=== PATIENT | male | born 1975 | race Caucasian/White ===

== ENCOUNTER → 2019-03-24 11:06 | Outpatient (CLI) | payer OTHER, SELFPAY ==
[2014-06-01 07:20] VITALS: BMI 24.5
--- NOTE | 2019-03-24 11:28 | EKG12_ITS ---
Test Reason : PRE OP Blood Pressure : / mmHG Vent. Rate : 071 BPM Atrial Rate : 071 BPM P-R Int : 170 ms QRS Dur : 070 ms QT Int : 370 ms P-R-T Axes : 071 054 064 degrees QTc Int : 402 ms Normal sinus rhythm with sinus arrhythmia Normal ECG Confirmed by BRITT JASON, TRAVIS ([id number]), editor in chief newspaper TEREZA IGNACIO ([id number] on 03/25/2019 11:50:26 AM Referred By: Milton Encarnacion Confirmed By:ОЛЕГ DE LA TORRE MD
[2019-03-24 11:57] LABS: Hemoglobin 15.4 g/dL (13.0-16.5); Mean Corp Hgb Conc 34.2 g/dL (32-36); Mean Corpuscular Hgb 30.9 pg (27.0-32.0); Mean Corpuscular Volume 90.4 fL (80-94); Mean Platelet Vol. 10.8 fl (6.2-12.0); Platelet Count 231 K/mm3 (150-450); RBC Distribution Width CV 12.9 % (11.6-14.6); RBC Distribution Width SD 42.4 fl (35.1-43.9); Red Blood Count 4.98 M/mm3 (4.6-6.2); White Blood Count 8.5 K/mm3 (4.4-11.0)
[2019-03-24 12:02] LABS: Anion Gap 6 (5-15); BUN 8 mg/dL (7-18); BUN/Creat Ratio 8.1 RATIO (10-20); Calcium,Total 8.8 mg/dL (8.5-10.1); Chloride 108 mmol/L (98-107); Creatinine, Serum 0.99 mg/dL (0.70-1.30); EST Glomerular Filtration Rate 87 mL/min (>60); Est Glom Filt Rate - Afr Amer 105 mL/min (>60); Glucose 92 mg/dL (74-106); Sodium Level 140 mmol/L (136-145)
== END ==
PROVIDERS: Family Provider Internal Medicine; PCP Internal Medicine; Referring Provider Physician Assistant; Visit Provider Physician Assistant
DX: Z01.818 Encounter for other preprocedural examination (principal); Z01.810 Encounter for preprocedural cardiovascular examination
CPT/HCPCS: 36415; 80048; 85027; 93005

== ENCOUNTER 2020-05-08 08:46 | Emergency (ER) | payer MEDICAID, SELFPAY ==
[2020-05-08 08:47] VITALS: BP 127/84; PULSE 72; RESP 15; TEMP 36.2; O2SAT 99; BMI 25.4
--- NOTE | 2020-05-08 09:04 | CT_ITS ---
STUDY: CT ABDOMEN AND PELVIS WITHOUT CONTRAST REASON FOR EXAM: Male, 44 years old. RIGHT FLANK PAIN, CHOLECYSTECTOMY RADIATION DOSAGE (If Supplied By Facility): CTDIvol = ( 10.28 ) mGy, DLP = ( 511.06 ) mGycm TECHNIQUE: Transaxial images were obtained from the dome of the diaphragm to the symphysis pubis without oral contrast, and without intravenous contrast. Sagittal and coronal images were reconstructed. Individualized dose optimization techniques were used for this CT. COMPARISON: Comparison is made with prior study dated 06/01/2014. FINDINGS: Minimal increased markings at the lung bases suggestive of atelectasis. The visualized portions of the heart are within normal limits. Normal liver. The patient is status post cholecystectomy. Normal spleen. Normal pancreas. The previously seen nodular density of decreased attenuation in the right adrenal gland has increased in size. It presently measures 2.1 cm. A similar appearing hypodense nodule is seen in the left adrenal gland at this time. It measures 1.1 cm. These most likely represent adenomas. Normal right kidney. There are 2 adjacent nonobstructive left intrarenal calculi in the upper pole of the left kidney. The larger measures 5.3 mm. Tiny calculus is seen in the lower pole calyx of the left kidney. There is a small hiatal hernia. Normal small intestine. Normal colon. The appendix is visualized and appears normal. Normal abdominal aorta. Normal inferior vena cava. There is borderline retroperitoneal lymphadenopathy with enlarged nodes no greater than 10mm in the short axis diameter. Normal urinary bladder. There are prostatic calcifications. There is a small umbilical hernia containing fat. There are mild degenerative changes of the visualized lumbar spine. CT/Abdomen/Pelvis without Cont IMPRESSION: Findings suggestive of a benign appearing bilateral adrenal adenomas. Nonobstructive right intrarenal calculi. Status post cholecystectomy. Electronically Signed: Louie De La Cruz, at 10:00 EDT , Service support ,
--- NOTE | 2020-05-08 09:05 | ED.DCSUM_ITS ---
History of Present Illness Chief Complaint: Abd Pain Informant: Patient Narrative: Patient presents the emergency department for the evaluation of right upper quadrant abdominal and right lower chest wall pain. Patient states that for the past 4 days he has had some nasal congestion and a slight cough and a sore throat. He denies any fever. He denies any bowel or bladder symptoms. He states that last evening the right lower chest right upper abdomen began to hurt. It is worse with movement and touch. He notes the ribs are sore. He has had prior cholecystectomy. He notes a prior history of kidney stones. Past Medical History - Allergies and Home Meds Allergies/Adverse Reactions: Allergies acetaminophen [From Vicodin] Allergy (Verified 05/08/20 08:50) Rash amoxicillin [Amoxicillin] Allergy (Verified 05/08/20 08:50) Rash hydrocodone bitartrate [From Vicodin] Allergy (Verified 05/08/20 08:50) Rash povidone-iodine [From Betadine] Allergy (Verified 05/08/20 08:50) Rash soap [From Betadine] Allergy (Verified 05/08/20 08:50) Rash Primary Care Physician: Marcela Tomas MD [STAFF PHYSICIAN] - 1 Week Prior records reviewed: Yes Past Medical History: - - KIDNEY STONES Surgical History: cholecystectomy Smoking Status: Current every day smoker Drugs: None Review of Systems General: Reports: Malaise. Denies: Chills, Fever, Sweats Eyes: Denies: Visual changes - bilaterally, Diplopia ENT: Reports: Rhinorrhea, Sore throat Cardiovascular: Reports: Chest pain. Denies: Palpitations Respiratory: Reports: Cough. Denies: Dyspnea, Dyspnea on exertion Gastrointestinal: Reports: Abdominal pain. Denies: Nausea, Vomiting, Diarrhea, Melena, Hematochezia Genitourinary: Denies: Dysuria, Hematuria, Frequency Musculoskeletal: Denies: Back pain, Extremity Pain Skin: Denies: Rash, Wounds Neurological: Denies: Headache, Weakness, Numbness Physical Exam Vital Signs/Narrative: Vital Signs Temp Pulse Resp BP Pulse Ox 05/08/20 08:47 97.1 F L 72 15 127/84 H 99 Inital Vital Signs reviewed: Yes General: Well nourished, Well developed, No Acute Distress Head: Normocephalic, Atraumatic Eyes: Perrl, EOMI ENT: Moist mucous membranes, Nasal congestion Neck: Supple, Nontender Cardiovascular: Regular rate, Regular rhythm, No murmurs Respiratory: No distress, CTA bilaterally, Chest nontender, Chest tenderness - Lower right anterior and mid axillary rib tenderness Abdomen: Soft, Nondistended, Normal bowel sounds, Tender - Right upper quadrant. Negative for: Guarding, Rebound tenderness Back: Nontender, Normal Inspection Extremities: Nontender, No edema Skin: Normal color, No rash Neurological: Alert, Oriented x3, Cranial nerves II-XII grossly intact, Normal Strength, Normal Sensation Psychological: Normal affect, Normal Mood Diagnostic/Tx/Re-eval Clinical Impression(s) from Imaging Studies Abdomen/Pelvis CT 05/08/20 09:04 IMPRESSION: Findings suggestive of a benign appearing bilateral adrenal adenomas. Nonobstructive right intrarenal calculi. Status post cholecystectomy. Electronically Signed: Louie De La Cruz, at 10:00 EDT , Service support , Chest X-Ray 05/08/20 09:34 IMPRESSION: No acute abnormality is seen. Electronically Signed: Louie De La Cruz, at 10:12 EDT , Service support , Laboratory Last Values WBC 9.5 K/mm3 (4.4-11.0) 05/08/20 09:10 RBC 5.17 M/mm3 (4.6-6.2) 05/08/20 09:10 Hgb 16.0 g/dL (13.0-16.5) 05/08/20 09:10 Hct 46.0 % (40-54) 05/08/20 09:10 MCV 89.0 fL (80-94) 05/08/20 09:10 MCH 30.9 pg (27.0-32.0) 05/08/20 09:10 MCHC 34.8 g/dL (32-36) 05/08/20 09:10 RDW Std Deviation 43.4 fl (35.1-43.9) 05/08/20 09:10 RDW Coeff of Mireya 13.3 % (11.6-14.6) 05/08/20 09:10 Plt Count 230 K/mm3 (150-450) 05/08/20 09:10 MPV 10.7 fl (6.2-12.0) 05/08/20 09:10 Neut % (Auto) Not Reportable 05/08/20 09:10 Absolute Neuts (auto) 6.6 X10^3/uL (2.0-7.7) 05/08/20 09:10 Absolute Lymphs (auto) 1.89 X10^3/uL (0.83-4.51) 05/08/20 09:10 Total Counted 100 (MANUAL DIFF) 05/08/20 09:10 Neutrophils % (Manual) 67 % (47-70) 05/08/20 09:10 Band Neutrophils % 3 % (0-5) 05/08/20 09:10 Lymphocytes % (Manual) 20 % (19-41) 05/08/20 09:10 Monocytes % (Manual) 6 % (0-10) 05/08/20 09:10 Eosinophils % (Manual) 1 % (0-5) 05/08/20 09:10 Basophils % (Manual) 1 % (0-1) 05/08/20 09:10 Blast Cells % 1 % (0-0) H* 05/08/20 09:10 Other Cells % 1 % 05/08/20 09:10 Diff Path Review December05/08/20 09:10 Platelet Estimate ADEQUATE (ADEQ) 05/08/20 09:10 RBC Morphology NORM C+C NORMAL (NORM C&C) 05/08/20 09:10 Sodium 137 mmol/L (136-145) 05/08/20 09:10 Potassium 4.0 mmol/L (3.5-5.1) 05/08/20 09:10 Chloride 109 mmol/L (98-107) H 05/08/20 09:10 Carbon Dioxide 26.0 mmol/L (21.0-32.0) 05/08/20 09:10 Anion Gap 2 (5-15) L 05/08/20 09:10 BUN 12 mg/dL (7-18) 05/08/20 09:10 Creatinine 0.99 mg/dL (0.70-1.30) 05/08/20 09:10 Estim Creat Clear Calc 106.49 ml/min 05/08/20 09:10 Est GFR (MDRD) Af Amer 105 mL/min (>60) 05/08/20 09:10 Est GFR (MDRD) Non-Af 87 mL/min (>60) 05/08/20 09:10 BUN/Creatinine Ratio 12.2 RATIO (10-20) 05/08/20 09:10 Glucose 104 mg/dL (74-106) 05/08/20 09:10 Calcium 8.8 mg/dL (8.5-10.1) 05/08/20 09:10 Total Bilirubin 0.30 mg/dL (0.20-1.00) 05/08/20 09:10 AST 17 U/L (15-37) 05/08/20 09:10 ALT 21 U/L (16-61) 05/08/20 09:10 Alkaline Phosphatase 85 U/L (45-117) 05/08/20 09:10 Total Protein 7.4 g/dL (6.4-8.2) 05/08/20 09:10 Albumin 3.8 g/dL (3.2-5.0) 05/08/20 09:10 Globulin 3.6 g/dL (2.2-4.2) 05/08/20 09:10 Albumin/Globulin Ratio 1.1 RATIO (0.9-2.4) 05/08/20 09:10 Lipase 169 U/L (73-393) 05/08/20 09:10 Urine Color Yellow (Yellow) 05/08/20 09:25 Urine Clarity Sl. Cloudy (Clear) 05/08/20 09:25 Urine pH 6.5 (5.0 - 8.0) 05/08/20 09:25 Ur Specific [place] 1.005 (1.002-1.030) 05/08/20 09:25 Urine Protein Negative mg/dl (Negative) 05/08/20 09:25 Urine Glucose (UA) Normal mg/dl (Normal) 05/08/20 09:25 Urine Ketones Negative mg/dl (Negative) 05/08/20 09:25 Urine Occult Blood Negative /ul (Negative) 05/08/20 09:25 Urine Nitrite Negative (Negative) 05/08/20 09:25 Urine Bilirubin Negative mg/dL (Negative) 05/08/20 09:25 Urine Urobilinogen Normal mg/dl (Normal) 05/08/20 09:25 Ur Leukocyte Esterase Negative /ul (Negative) 05/08/20 09:25 Urine RBC 0 SEEN /hpf (0-5) 05/08/20 09:25 Urine WBC 0 SEEN /hpf (0-5) 05/08/20 09:25 Ur Squamous Epith Cells 0-5 SEEN /hpf (0-5) 05/08/20 09:25 Urine Bacteria 0 SEEN /hpf (None Seen) 05/08/20 09:25 Urine Mucus 0 SEEN /hpf (<or=2+) 05/08/20 09:25 - Medical Decision Making Basic blood work is negative though one blast was noted on his automatic differential. Patient was advised he should follow-up with his doctor. CT the pelvis negative chest x-ray negative. At this point his ribs are very tender and reproduces his pain. He has evidence of a URI. I suspect that this is rib strain. I doubt pulmonary embolism as his pain is extremely reproducible. He is not tachycardic or hypoxic. He has no shortness of breath. Because of rhinorrhea and sore throat we will swab him for COVID. Would recommend anti- inflammatories rest. Return if worsening or concerns ED Disposition - Plan for ED Patient: Disposition: Home or Assisted Living Diagnosis: URI (upper respiratory infection), Chest wall pain Instructions: ED Chest Pain NonCardiac, ED URI Viral Prescriptions: Naproxen [Naprosyn] 500 mg PO BID #14 tab Prescription Printed Referrals: Marcela Tomas MD [STAFF PHYSICIAN] - 1 Week Additional Instructions: Please follow-up with your primary care physician regarding this visit.
[2020-05-08 09:17] LABS: Mean Corp Hgb Conc 34.8 g/dL (32-36); Mean Corpuscular Hgb 30.9 pg (27.0-32.0); Mean Platelet Vol. 10.7 fl (6.2-12.0); POSITIVE MORPHOLOGY YES; Platelet Count 230 K/mm3 (150-450); RBC Distribution Width CV 13.3 % (11.6-14.6); RBC Distribution Width SD 43.4 fl (35.1-43.9); Red Blood Count 5.17 M/mm3 (4.6-6.2); White Blood Count 9.5 K/mm3 (4.4-11.0)
[2020-05-08] MEDS: Ketorolac 30 MG/ML Syringe IV (09:28)
--- NOTE | 2020-05-08 09:34 | RAD_ITS ---
STUDY: X-RAY CHEST REASON FOR EXAM: Male, 44 years old. RUQ PAIN SINCE LAST NIGHT TECHNIQUE: PA and lateral views of the chest. COMPARISON: Comparison is made with prior study dated 06/29/2013. FINDINGS: Hyperinflation. Scattered calcified granulomas. There is no demonstrated pleural abnormality. Normal size heart. Normal mediastinum and vipul. Normal visualized pulmonary arteries. Normal visualized aortic arch and descending thoracic aorta. Normal visualized thoracic spine. Normal visualized ribs, clavicles, and shoulders. There is no demonstrated abnormality of the visualized soft tissue structures of the upper abdomen. RAD/Chest PA and Lateral IMPRESSION: No acute abnormality is seen. Electronically Signed: Louie De La Cruz, at 10:12 EDT , Service support ,
[2020-05-08 09:35] LABS: Bacteria 0 SEEN /hpf (None Seen); Mucous, Urine 0 SEEN /hpf (<or=2+); Red Blood Cells-Urine 0 SEEN /hpf (0-5); White Blood Cells 0 SEEN /hpf (0-5)
[2020-05-08 09:36] LABS: ALB/GLOB Ratio 1.1 RATIO (0.9-2.4); AST(SGOT) 17 U/L (15-37); Alanine Aminotransfer ALT/SGPT 21 U/L (16-61); Albumin, Serum 3.8 g/dL (3.2-5.0); Alkaline Phosphatase 85 U/L (45-117); Anion Gap 2 (5-15); BUN 12 mg/dL (7-18); BUN/Creat Ratio 12.2 RATIO (10-20); Calcium,Total 8.8 mg/dL (8.5-10.1); Chloride 109 mmol/L (98-107); Creatinine, Serum 0.99 mg/dL (0.70-1.30); EST Glomerular Filtration Rate 87 mL/min (>60); Est Glom Filt Rate - Afr Amer 105 mL/min (>60); Estimated Creatinine Clearance 106.49 ml/min; Globulin 3.6 g/dL (2.2-4.2); Glucose 104 mg/dL (74-106); Lipase 169 U/L (73-393); Protein, Total 7.4 g/dL (6.4-8.2); Sodium Level 137 mmol/L (136-145)
[2020-05-08 09:37] LABS: Color, Urine Yellow (Yellow); Glucose, Dipstick Normal (Normal); Ketone-Dipstick Negative (Negative); Leukocyte Esterase-Dipstick Negative /ul (Negative); Nitrite-Dipstick Negative (Negative); Occult Blood-Urine Negative /ul (Negative); Protein-Dipstick Negative (Negative); Specific Gravity, Urine 1.005 (1.002-1.030); Urine Bilirubin Dipstick Negative (Negative); Urine Clarity Sl. Cloudy (Clear); Urine Urobilinogen Normal (Normal); Urine pH 6.5 (5.0 - 8.0)
[2020-05-08 09:42] LABS: Squamous Epithelial Cells - UA 0-5 SEEN /hpf (0-5)
[2020-05-08 09:47] LABS: Differential Indicated MANUAL DIFF
[2020-05-08 09:50] LABS: Basophil 1 % (0-1); Blast 1 % (0-0); Eosinophil 1 % (0-5); Lymphocyte 20 % (19-41); Monocyte 6 % (0-10); Neutrophil-Band 3 % (0-5); Neutrophil-Segmented 67 % (47-70); Total Cells Counted 100 (MANUAL DIFF)
[2020-05-08 09:52] LABS: Absolute Lymphocyte Count 1.89 X10^3/uL (0.83-4.51); Absolute Neutrophil Count 6.6 X10^3/uL (2.0-7.7); Other WBC Type 1 %
[2020-05-08 09:53] LABS: Platelet Estimate ADEQUATE (ADEQ)
[2020-05-08 09:54] LABS: Red Cell Morphology NORM C+C NORMAL (NORM C&C)
[2020-05-09 12:12] LABS: Pathologist Review Reviewed
== END 2020-05-08 10:39 | disposition home or self-care (01) ==
PROVIDERS: Emergency Provider Emergency Medicine; PCP Family Medicine
DX: J06.9 Acute upper respiratory infection, unspecified (principal); R07.89 Other chest pain; F17.200 Nicotine dependence, unspecified, uncomplicated; Z87.442 Personal history of urinary calculi
CPT/HCPCS: 71046; 74176; 80053; 81001; 83690; 85025; 87635; 96374; 99283; A4216; U0003

== ENCOUNTER 2020-07-17 18:47 | Emergency (ER) | payer MEDICAID, SELFPAY ==
[2020-07-17 18:48] VITALS: BP 136/86; PULSE 86; RESP 20; TEMP 35.7; O2SAT 98; BMI 27.6
--- NOTE | 2020-07-17 20:06 | EKG12_ITS ---
Test Reason : CP Blood Pressure : / mmHG Vent. Rate : 072 BPM Atrial Rate : 072 BPM P-R Int : 204 ms QRS Dur : 074 ms QT Int : 390 ms P-R-T Axes : 075 030 042 degrees QTc Int : 427 ms Normal sinus rhythm Low voltage QRS Nonspecific ST abnormality Abnormal ECG Confirmed by BRITT JASON, TRAVIS ([id number]), editor sound DORIS MONDRAGON ([id number]) on 07/20/2020 8:51:07 A M Referred By: JIGAR Confirmed By:ОЛЕГ DE LA TORRE MD
--- NOTE | 2020-07-17 20:08 | ED.DCSUM_ITS ---
History of Present Illness Chief Complaint: General Illness Informant: Patient Narrative: 45-year-old male presenting with chest pain. This began last evening about 6 to 6:30 PM when he was having sexual intercourse. He states he had acute onset pain and became diaphoretic and pale. This lasted about an hour at this severity and he has had mild chest pain all day. He states he then went and laid down on the couch and states he did not wake up until this evening. He feels fatigued. He has not had a fever or cough but does state he has shortness of breath on ambulation and becomes lightheaded. He denies any cardiac history. Patient states he is a smoker Past Medical History - Allergies and Home Meds Allergies/Adverse Reactions: Allergies acetaminophen [From Vicodin] Allergy (Verified 05/08/20 08:50) Rash amoxicillin [Amoxicillin] Allergy (Verified 05/08/20 08:50) Rash hydrocodone bitartrate [From Vicodin] Allergy (Verified 05/08/20 08:50) Rash povidone-iodine [From Betadine] Allergy (Verified 05/08/20 08:50) Rash soap [From Betadine] Allergy (Verified 05/08/20 08:50) Rash Primary Care Physician: Tony Holguin MD [Primary Care Provider] - Prior records reviewed: Yes Past Medical History: - - History of diverticulitis, IBS Surgical History: cholecystectomy Lives: Spouse/ Significant Other Smoking Status: Current every day smoker Alcohol: None Drugs: None Review of Systems General: Reports: Malaise, Sweats. Denies: Chills, Fever Eyes: Denies: Visual changes - bilaterally, Diplopia ENT: Denies: Rhinorrhea, Sore throat Cardiovascular: Reports: Chest pain, Palpitations Respiratory: Reports: Dyspnea, Dyspnea on exertion Gastrointestinal: Reports: Abdominal pain, Nausea Genitourinary: Reports: Dysuria, Hematuria Musculoskeletal: Reports: Myalgias, Arthralgias Skin: Denies: Rash, Abscess Neurological: Reports: Headache. Denies: Parasthesia, Numbness Psych: Reports: Depression. Denies: Anxiety Endocrine: Denies: Polyuria, Polydipsia Physical Exam Vital Signs/Narrative: Vital Signs Temp Pulse Resp BP Pulse Ox 07/17/20 18:48 96.2 F L 86 20 H 136/86 H 98 Diagnostic/Tx/Re-eval Clinical Impression(s) from Imaging Studies Chest X-Ray 07/17/20 20:35 IMPRESSION: No acute cardiopulmonary process. Electronically Signed: Chanel Cerna MD at 21:11 EST Tel , Service support , Laboratory Data 07/17/20 07/17/20 07/17/20 20:30 20:30 20:30 WBC 9.4 RBC 5.01 Hgb 15.1 Hct 44.9 MCV 89.6 MCH 30.1 MCHC 33.6 RDW Std Deviation 42.9 RDW Coeff of Mireya 13.1 Plt Count 229 MPV 10.9 Immature Gran % (Auto) 0.300 Neut % (Auto) 57.2 Lymph % (Auto) 32.2 [place] % (Auto) 8.3 Eos % (Auto) 1.4 Baso % (Auto) 0.6 Absolute Neuts (auto) 5.4 Absolute Lymphs (auto) 3.02 Nucleated RBC % 0 D-Dimer Quant (PE/DVT) 0.29 Sodium 143 Potassium 4.0 Chloride 112 H Carbon Dioxide 25.0 Anion Gap 6 BUN 13 Creatinine 0.89 Estim Creat Clear Calc 117.21 Est GFR (MDRD) Af Amer 118 Est GFR (MDRD) Non-Af 97 BUN/Creatinine Ratio 14.5 Glucose 91 Calcium 8.3 L Troponin I < 0.015 - Rhythm Strip Rhythm Strip: Sinus Rhythm Rate: 72 - EKG Initial EKG Interpretation: Sinus Rhythm, No Acute Injury Pattern - Medical Decision Making 45-year-old male presenting with chest pain last evening and extending into today. He said that he just feels generally unwell and has been sleeping all day. He is not had a fever or cough. EKG performed on arrival shows sinus rhythm without ischemic changes as interpreted by myself. Chest x-ray is negative for acute process as interpreted by the radiologist and myself. Troponin is negative after multiple hours of discomfort so I do not believe he needs a delta troponin. D-dimer is negative. Rest of patient's lab are unremarkable. I counseled the patient that I could test him for Covid and have him quarantine given his feeling of unwellness. He was amenable to this plan. He will be tested and discharged home. Impression: 1. Chest pain ED Disposition - Plan for ED Patient: Disposition: Home or Assisted Living Instructions: Coronavirus Disease 2019 (COVID-19): Caring for Yourself or Others, ED Chest Pain, Uncertain Cause Referrals: Tony Holguin MD [Primary Care Provider] -
[2020-07-17 20:26] VITALS: BP 136/86; PULSE 81; PULSE 85; RESP 16; RESP 18; TEMP 35.7; O2SAT 96; O2SAT 98
[2020-07-17] MEDS: 0.9% Normal Saline 1,000 ML 1000 ML IV (20:31)
[2020-07-17] MEDS: Aspirin 81 MG TAB.CHEW 324 MG PO (20:31)
--- NOTE | 2020-07-17 20:35 | RAD_ITS ---
STUDY: X-RAY CHEST REASON FOR EXAM: Male, 45 years old. sob,cough,fatigue TECHNIQUE: Single frontal view of the chest. COMPARISON: 05/08/2020 FINDINGS: There is no new focal consolidation. Normal size heart. Normal mediastinum and vipul. Normal visualized pulmonary arteries. Normal visualized aortic arch and descending thoracic aorta. Normal visualized thoracic spine. Normal visualized ribs, clavicles, and shoulders. There is no demonstrated abnormality of the visualized soft tissue structures of the upper abdomen. RAD/Chest 1 View (Portable) IMPRESSION: No acute cardiopulmonary process. Electronically Signed: Chanel Cerna MD at 21:11 EST Tel , Service support ,
[2020-07-17 20:46] LABS: Absolute Lymphocyte Count 3.02 X10^3/uL (0.83-4.51); Absolute Neutrophil Count 5.4 X10^3/uL (2.0-7.7); Basophil# 0.06 X10^3/uL; Basophil% 0.6 % (0-1); Eosinophil# 0.13 X10^3/uL; Eosinophils% 1.4 % (0-5); Hematocrit 44.9 % (40-54); Hemoglobin 15.1 g/dL (13.0-16.5); Lymphocyte # 3.02 X10^3/ul (4.0); Lymphocyte % 32.2 % (19-41); Mean Corp Hgb Conc 33.6 g/dL (32-36); Mean Corpuscular Hgb 30.1 pg (27.0-32.0); Mean Corpuscular Volume 89.6 fL (80-94); Mean Platelet Vol. 10.9 fl (6.2-12.0); Monocyte# 0.78 X10^3/uL; Monocyte% 8.3 % (0-10); NRBC Flagged by Analyzer 0 % (0-5); Neutrophil # 5.36 X10^3/uL (2.7-7.7); Neutrophil % 57.2 % (47-70); Platelet Count 229 K/mm3 (150-450); RBC Distribution Width CV 13.1 % (11.6-14.6); RBC Distribution Width SD 42.9 fl (35.1-43.9); Red Blood Count 5.01 M/mm3 (4.6-6.2); White Blood Count 9.4 K/mm3 (4.4-11.0)
[2020-07-17 21:06] LABS: Anion Gap 6 (5-15); BUN 13 mg/dL (7-18); BUN/Creat Ratio 14.5 RATIO (10-20); Calcium,Total 8.3 mg/dL (8.5-10.1); Chloride 112 mmol/L (98-107); Creatinine, Serum 0.89 mg/dL (0.70-1.30); EST Glomerular Filtration Rate 97 mL/min (>60); Est Glom Filt Rate - Afr Amer 118 mL/min (>60); Estimated Creatinine Clearance 117.21 ml/min; Glucose 91 mg/dL (74-106); Sodium Level 143 mmol/L (136-145)
[2020-07-17 21:13] LABS: D-Dimer Quantitative (DVT/PE) 0.29 FEU/ug/m (0.27-0.49)
[2020-07-17 23:02] VITALS: BP 121/92; PULSE 75; RESP 16; O2SAT 96
== END 2020-07-17 23:03 | disposition home or self-care (01) ==
PROVIDERS: Emergency Provider Student in an Organized Health Care Education/Training Program; PCP Family Medicine
DX: R07.9 Chest pain, unspecified (principal); F17.200 Nicotine dependence, unspecified, uncomplicated; Z88.5 Allergy status to narcotic agent
CPT/HCPCS: 71045; 80048; 84484; 85025; 85379; 93005; 96360; 96361; 99285; J7030

== ENCOUNTER 2020-12-19 23:59 | Emergency (ER) | payer MEDICAID, SELFPAY ==
[2020-12-20] VITALS: BP 144/86; PULSE 90; RESP 18; TEMP 36.8; O2SAT 100; BMI 25.9
--- NOTE | 2020-12-20 00:31 | RAD_ITS ---
STUDY: X-RAY - RIGHT HAND REASON FOR EXAM: Male, 45 years old. trauma TECHNIQUE: 3 view(s) of the hand. COMPARISON: None. FINDINGS: Normal radiocarpal articulation. Normal distal radioulnar joint. Normal visualized carpal bones. Normal carpal articulations Normal carpometacarpal articulation of the thumb. Normal second through fifth carpometacarpal joints. Normal metacarpi. Normal metacarpophalangeal joint of the thumb. Normal interphalangeal joint of the thumb. Normal proximal and distal phalanges of the thumb. Normal metacarpophalangeal joints of the second through fifth fingers. Normal proximal and distal interphalangeal joints of the second through fifth fingers. Normal phalanges of the second through fifth fingers. The soft tissue structures are unremarkable. RAD/Hand Min 3 Views IMPRESSION: Normal x-ray examination of the hand. Electronically Signed: Bryan Keller DO at 1:27 EDT Tel , Service support ,
--- NOTE | 2020-12-20 00:31 | RAD_ITS ---
STUDY: X-RAY - RIGHT WRIST REASON FOR EXAM: Male, 45 years old. trauma TECHNIQUE: 3 view(s) of the wrist were obtained. COMPARISON: None. FINDINGS: Normal visualized distal radius and ulna. Normal radiocarpal articulation. Normal distal radioulnar articulation. Normal carpal bones. Normal carpal articulations. Normal carpometacarpal articulation of the thumb. Normal second through fifth carpometacarpal articulations. Normal visualized metacarpal bones. The soft tissue structures are unremarkable. RAD/Wrist min 3 Views IMPRESSION: Normal x-ray examination of the wrist. Electronically Signed: Bryan Keller DO at 1:27 EDT Tel , Service support ,
[2020-12-20] MEDS: Ketorolac 30 MG/ML Syringe IM (00:38)
--- NOTE | 2020-12-20 00:41 | EX.ED.UPPERE ---
HPI History of Present Illness Chief Complaint: Upper Extremity Injury Informant: patient Occured/Mechanism Mechanism/Context: Yes same level fall Comment: Dog pulled him and he landed on his right hand and wrist Onset/Context/Timing Onset: Today Context: Sudden Onset Timing: Continuous Quality of Pain: Aching Location: Right hand and wrist Current Severity: Severe Maximum Severity: Severe Worsened by: Movement and use Associated Symptoms Associated Symptoms: Negative for Parasthesia, Weakness and Loss of Funtion Narrative Prior similar symptoms: No PFSH PFSH Medical History Patient denies medical problems Home Medications naproxen 500 mg PO BID PRN #20 tab 12/20/20 [Rx Last Taken Unknown] Allergy/AdvReac Type Severity Reaction Status Date / Time acetaminophen [From Vicodin] Allergy Rash Verified 12/20/20 00:02 amoxicillin [Amoxicillin] Allergy Rash Verified 12/20/20 00:02 hydrocodone bitartrate Allergy Rash Verified 12/20/20 00:02 [From Vicodin] povidone-iodine Allergy Rash Verified 12/20/20 00:02 [From Betadine] soap [From Betadine] Allergy Rash Verified 12/20/20 00:02 Social History Smoking Status: Current every day smoker ROS ROS ED Constitutional Constitutional ED: Denies chills or frequent falls Eyes Eyes: Denies change in vision ENT ENT ED: Denies ear pain Cardiovascular Cardiovascular: Denies chest pain Respiratory/Chest Respiratory/Chest: Denies dyspnea Gastrointestinal Gastrointestinal: Denies abdominal pain Genitourinary Genitourinary ED: Denies dysuria Musculoskeletal Musculoskeletal: Reports myalgias; Denies back pain or neck pain Integumentary Denies abscess, Abrasions or rash Neurologic Neurologic: Denies headache(s), paresthesias or weakness Psychiatric Psychiatric: Denies depression Endocrine Endocrinology: Denies polyuria Hematologic/Lymphatic Hematologic/Lymphatic: Denies easy bleeding or easy bruising Allergic/Immunologic Allergic/Immunologic ED: Denies urticaria EXAM Physical Exam Narrative Exam Narrative: Vital signs reviewed. Patient alert and oriented. Appears uncomfortable but not toxic or in distress. Head and neck atraumatic Upper extremity exam shows normal inspection. He is tender to palpation over his dorsal hand, more so on the ulnar side. He also has diffuse tenderness to his right wrist. No elbow tenderness. Range of motion is intact but limited secondary to pain. Pulses strong and equal. Capillary refill normal. Sensation intact. Const Vital Signs: 12/20/20 00:00 Temperature 98.3 F Temperature Source Temporal Pulse Rate 90 Respiratory Rate 18 Blood Pressure 144/86 H Blood Pressure Mean 105 Pulse Ox 100 Oxygen Delivery Method Room Air MDM MDM MDM Narrative Medical decision making narrative: Patient was treated with pain medication. Will check x-rays. X-rays reviewed by myself and the radiologist were negative. Patient was placed in a preformed, Velcro splint. Anti-inflammatories. Rest, ice, elevate. Follow-up as an outpatient as needed. Discharge Plan Triage Chief Complaint: Upper Extremity Injury ED Provider: Freeman Valdivia Dx/Rx/DC Orders Clinical Impression: Right wrist sprain Instructions: ED Wrist Sprain Prescriptions: New naproxen 500 mg tablet 500 mg PO BID PRN Qty: 20 RF: 0 Primary Care Provider: Tony Holguin Referrals: Tony Holguin MD [Primary Care Provider] - As Needed Disposition Disposition: Home, self care
== END 2020-12-20 01:51 | disposition home or self-care (01) ==
PROVIDERS: Emergency Provider Emergency Medicine; PCP Family Medicine
DX: S63.501A Unspecified sprain of right wrist, initial encounter (principal); W18.39XA Other fall on same level, initial encounter; Y93.K1 Activity, walking an animal; Y92.9 Unspecified place or not applicable; Y99.8 Other external cause status; F17.200 Nicotine dependence, unspecified, uncomplicated
CPT/HCPCS: 73110; 73130; 99283

== ENCOUNTER 2021-05-01 08:41 | Emergency (ER) | payer MEDICAID, SELFPAY ==
[2021-05-01 08:42] VITALS: BP 131/89; PULSE 102; RESP 16; TEMP 36.9; O2SAT 97; BMI 28.5
--- NOTE | 2021-05-01 08:55 | ED.VIS.DENTA ---
HPI History of Present Illness Chief Complaint: Dental Informant: patient Narrative Narrative: 45-year-old male presents the emergency room with dental pain. Patient states that 2 weeks ago he had 3 teeth break apart. His dentist is reportedly out of the country until July 10. He states that he has been calling other dentist but nobody will take Medicaid. He notes swelling along the gumline. He notes pain into his neck. He has been unable to smoke due to the pain. PFSH PFSH Medical History Patient denies medical problems Renal calculi Home Medications clindamycin HCl [Cleocin HCl] 300 mg PO Q6H #40 capsule 05/01/21 [Rx Last Taken Unknown] meloxicam 7.5 mg PO BID 05/01/21 [History Last Taken Unknown] oxycodone-acetaminophen 1 tab PO Q6H PRN PRN 5 Days #20 tablet 05/01/21 [Rx Last Taken Unknown] tramadol 50 mg PO Q8H PRN 05/01/21 [History Last Taken Unknown] Allergy/AdvReac Type Severity Reaction Status Date / Time acetaminophen [From Vicodin] Allergy Rash Verified 05/01/21 08:44 amoxicillin [Amoxicillin] Allergy Rash Verified 05/01/21 08:44 hydrocodone bitartrate Allergy Rash Verified 05/01/21 08:44 [From Vicodin] povidone-iodine Allergy Rash Verified 05/01/21 08:44 [From Betadine] soap [From Betadine] Allergy Rash Verified 05/01/21 08:44 Surgical History Hx of cholecystectomy Hx of tonsillectomy Social History (Updated 05/01/21 @ 08:[address] Freeman Lan DO) Smoking Status: Current every day smoker tobacco type: cigarettes substance use type: does not use ROS ROS ED Constitutional Constitutional ED: Denies chills or weight loss Eyes Eyes: Denies change in vision or diplopia ENT ENT ED: Reports other Details: Dental pain ; Denies ear pain, rhinorrhea or sore throat Cardiovascular Cardiovascular: Denies chest pain, orthopnea, palpitations or racing heartbeat Respiratory/Chest Respiratory/Chest: Denies cough, dyspnea or orthopnea Gastrointestinal Gastrointestinal: Denies abdominal pain, diarrhea, nausea or vomiting Genitourinary Genitourinary ED: Denies dysuria, hematuria or urinary frequency Musculoskeletal Musculoskeletal: Denies arthralgias or myalgias Integumentary Denies abscess or rash Neurologic Neurologic: Denies headache(s) or weakness Psychiatric Psychiatric: Denies anxiety, depression, suicidal ideation or suicidal thoughts Endocrine Endocrinology: Denies polydipsia, polyphagia or polyuria Allergic/Immunologic Allergic/Immunologic ED: Denies mouth swelling, tongue swelling or urticaria EXAM Physical Exam Const Vital Signs: 05/01/21 08:42 Temperature 98.5 F Temperature Source Temporal Pulse Rate 102 H Respiratory Rate 16 Blood Pressure 131/89 H Blood Pressure Mean 103 Pulse Ox 97 Oxygen Delivery Method Room Air Positive well nourished and well developed General Appearance ED: well developed HEENT Reports normocephalic, head/scalp atraumatic, TM's clear and moist mucous membranes HEENT Narrative: There is no trismus. There are multiple teeth on the lower right and left molar region that are significantly decayed and have fallen apart. Along the left gumline there is some swelling. There is no fluctuance. There is no outward facial swelling or erythema. The floor the mouth is soft. Tympanic Membrane ED: Yes TM's clear Eyes PERRL and EOMs intact bilaterally Neck no lymphadenopathy, supple and no JVD Resp normal respiratory effort and clear to auscultation bilaterally Cardio regular rate, regular rhythm and no murmurs GI normal to inspection, nondistended, normoactive bowel sounds and non-tender Palpation: soft Back/Spine no CVA tenderness and normal ROM Extremity normal to inspection General Extremety ED: Negative for edema General Extremity: Negative for edema Neuro oriented x3 and CN's II-XII intact bilaterally Sensorium / Orientation: alert Motor Exam: strength 5/5 throughout Psych mental status grossly normal Mood & Affect: Negative for depressed or tearful Skin no rashes or lesions noted and no wounds MDM MDM MDM Narrative Medical decision making narrative: Due to allergies patient will be started on clindamycin and Percocet. I will give him a list of dental places that he may try. He was advised he may need to be hospitalized. Discharge Plan Triage Chief Complaint: Dental ED Provider: Freeman Lan Dx/Rx/DC Orders Clinical Impression: Abscess, dental Instructions: Dental Abscess Prescriptions: New clindamycin HCl [Cleocin HCl] 300 MG capsule 300 mg PO Q6H Qty: 40 RF: 0 oxycodone-acetaminophen [oxycodone-acetaminophen] 1 TABLET tablet 1 tab PO Q6H PRN PRN (Reason: pain) 5 Days Qty: 20 RF: 0 No Action tramadol 50 mg Tablet 50 mg PO Q8H PRN (Reason: Pain) RF: 0 meloxicam 7.5 mg Tablet 7.5 mg PO BID RF: 0 Primary Care Provider: Tony Holguin Referrals: Tony Holguin MD [Primary Care Provider] - Activity Restrictions/Additional Instructions: Please follow-up with dentistry as soon as possible. If you are worsening please return to the emergency department. Disposition Disposition: Home, Self Care
== END 2021-05-01 09:20 | disposition home or self-care (01) ==
PROVIDERS: Emergency Provider Emergency Medicine; PCP Family Medicine
DX: K04.7 Periapical abscess without sinus (principal); F17.210 Nicotine dependence, cigarettes, uncomplicated
CPT/HCPCS: 99282

== ENCOUNTER 2021-06-09 22:36 | Emergency (ER) | payer MEDICAID, SELFPAY ==
[2021-06-09 22:37] VITALS: BP 131/85; PULSE 89; RESP 16; TEMP 35.7; O2SAT 97; BMI 26.7
--- NOTE | 2021-06-09 23:03 | EX.ED.DYSGE1 ---
HPI History of Present Illness Chief Complaint: Cold Sx Informant: patient Onset/Context/Timing Onset: Days (3) Context: Gradual Onset Timing: Continuous Quality: Congested Location: Nose and upper airway Worsened by: Lying flat Relieved by: Nothing Narrative Narrative: Patient presents with cough and congestion that has been getting worse over the past 3 days. Patient states he feels congested in his nose. Patient states that a coworker tested positive for Covid and he was exposed to 5 days ago. Patient admits to a cough with some yellow sputum. Patient admits to some bilateral ear pain and tinnitus. Patient admits to subjective fevers. Patient states his breathing is worse whenever he lays flat. Patient admits to generalized myalgias and headache. [facility] Medical History Patient denies medical problems Renal calculi Home Medications clindamycin HCl [Cleocin HCl] 300 mg PO Q6H #40 capsule 05/01/21 [Rx Last Taken Unknown] meloxicam 7.5 mg PO BID 05/01/21 [History Last Taken Unknown] oxycodone-acetaminophen 1 tab PO Q6H PRN PRN 5 Days #20 tablet 05/01/21 [Rx Last Taken Unknown] tramadol 50 mg PO Q8H PRN 05/01/21 [History Last Taken Unknown] Allergy/AdvReac Type Severity Reaction Status Date / Time acetaminophen [From Vicodin] Allergy Rash Verified 06/09/21 22:39 amoxicillin [Amoxicillin] Allergy Rash Verified 06/09/21 22:39 hydrocodone bitartrate Allergy Rash Verified 06/09/21 22:39 [From Vicodin] povidone-iodine Allergy Rash Verified 06/09/21 22:39 [From Betadine] soap [From Betadine] Allergy Rash Verified 06/09/21 22:39 Surgical History Hx of cholecystectomy Hx of tonsillectomy Social History Smoking Status: Current every day smoker tobacco type: cigarettes substance use type: does not use ROS ROS ED Constitutional Constitutional ED: Reports fever(s) and subjective; Denies chills Eyes Eyes: Denies blurry vision or change in vision ENT ENT ED: Reports rhinorrhea; Denies sore throat Cardiovascular Cardiovascular: Reports chest pain; Denies palpitations Respiratory/Chest Respiratory/Chest: Reports cough; Denies dyspnea Gastrointestinal Gastrointestinal: Reports nausea and vomiting Genitourinary Genitourinary ED: Denies dysuria or hematuria Musculoskeletal Musculoskeletal: Reports back pain and myalgias Integumentary Denies abscess or rash Neurologic Neurologic: Reports headache(s); Denies weakness Allergic/Immunologic Allergic/Immunologic ED: Denies mouth swelling or urticaria EXAM Physical Exam Const Vital Signs: 06/09/21 22:37 06/09/21 23:34 Temperature 96.2 F L Temperature Source Temporal Pulse Rate 89 Respiratory Rate 16 Respiratory Effort Normal Respiratory Depth Normal Respiratory Pattern Normal Blood Pressure 131/85 H Blood Pressure Mean 100 Pulse Ox 97 Oxygen Delivery Method Room Air Positive well nourished and well developed General Appearance ED: well developed HEENT Reports moist mucous membranes Neck supple and no JVD Resp normal respiratory effort and clear to auscultation bilaterally Cardio regular rate, regular rhythm and no murmurs GI normal to inspection, nondistended, normoactive bowel sounds and non-tender Palpation: soft Extremity normal to inspection General Extremety ED: Negative for edema or tenderness General Extremity: Negative for edema Neuro oriented x3, CN's II-XII intact bilaterally and no sensory deficits noted Sensorium / Orientation: alert Motor Exam: strength 5/5 throughout Psych mental status grossly normal Skin no rashes or lesions noted MDM MDM MDM Narrative Medical decision making narrative: COVID-19 rapid antigen was obtained and was negative. Patient was advised of his findings. Patient was advised that this is most likely a viral upper respiratory infection. Patient was instructed to follow-up with his primary care physician in 5 to 7 days. Patient understood and was agreeable with the plan. All questions were answered. Discharge Plan Triage Chief Complaint: Cold Sx ED Provider: Liang York Dx/Rx/DC Orders Clinical Impression: Viral URI Instructions: ED URI, Viral, No Abx (Adult) Prescriptions: No Action tramadol 50 mg Tablet 50 mg PO Q8H PRN (Reason: Pain) RF: 0 meloxicam 7.5 mg Tablet 7.5 mg PO BID RF: 0 clindamycin HCl [Cleocin HCl] 300 MG capsule 300 mg PO Q6H Qty: 40 RF: 0 oxycodone-acetaminophen [oxycodone-acetaminophen] 1 TABLET tablet 1 tab PO Q6H PRN PRN (Reason: pain) 5 Days Qty: 20 RF: 0 Stand Alone Forms: ED Work / School Excuse Primary Care Provider: Tony Holguin Referrals: Tony Holguin MD [Primary Care Provider] - 5-7 Days Disposition Disposition: Home, Self Care
== END 2021-06-10 00:06 | disposition home or self-care (01) ==
PROVIDERS: Emergency Provider Emergency Medicine; PCP Family Medicine
DX: J06.9 Acute upper respiratory infection, unspecified (principal); F17.210 Nicotine dependence, cigarettes, uncomplicated; Z20.822 Contact with and (suspected) exposure to COVID-19
CPT/HCPCS: 87426; 99282

== ENCOUNTER 2021-07-29 07:21 | Emergency (ER) | payer OTHER, MEDICAID, SELFPAY ==
[2021-07-29 07:21] VITALS: BP 143/115; PULSE 103; RESP 24; TEMP 36.4; O2SAT 98; BMI 28.2
--- NOTE | 2021-07-29 07:25 | RAD_ITS ---
STUDY: X-RAY - LEFT HAND REASON FOR EXAM: Male, 46 years old. Deformity of the third and fourth digits due to a fall. TECHNIQUE: 6 view(s) of the hand. COMPARISON: None. FINDINGS: Normal radiocarpal articulation. Normal distal radioulnar joint. Normal visualized carpal bones. Normal carpal articulations Normal carpometacarpal articulation of the thumb. Normal second through fifth carpometacarpal joints. Normal metacarpi. Normal metacarpophalangeal joint of the thumb. Normal interphalangeal joint of the thumb. Normal proximal and distal phalanges of the thumb. Normal metacarpophalangeal joints of the second through fifth fingers. There is evidence of ulnar and dorsal dislocation of the proximal interphalangeal joints of the third and fourth digits. Normal phalanges of the second through fifth fingers. Soft tissue swelling. RAD/Hand Min 3 Views IMPRESSION: Ulnar and dorsal dislocation at the proximal interphalangeal joints of the third and fourth digits. No fracture is seen. Electronically Signed: Louie De La Cruz MD at 8:06 EST , Service support ,
--- NOTE | 2021-07-29 07:30 | EX.ED.UPPERE ---
HPI History of Present Illness Chief Complaint: Fall Narrative Narrative: 46-year-old male presenting with left third fourth digit deformities. Patient states that he slipped and fell on ice while walking out to his truck this morning. He states he tried to catch himself with his hand when he struck the ground he noticed that his third and fourth digits of the left hand were deformed. He does have pain associated with this. He does not have numbness or tingling. His wrist is not tender. Patient is right-hand dominant. [facility] Medical History Patient denies medical problems Renal calculi Home Medications meloxicam 7.5 mg PO BID 05/01/21 [History Last Taken Unknown] tramadol [Ultram] 50 mg PO Q8H PRN 3 Days #12 tab 07/29/21 [Rx Last Taken Unknown] Allergy/AdvReac Type Severity Reaction Status Date / Time acetaminophen [From Vicodin] Allergy Rash Verified 07/29/21 07:24 amoxicillin [Amoxicillin] Allergy Rash Verified 07/29/21 07:24 hydrocodone bitartrate Allergy Rash Verified 07/29/21 07:24 [From Vicodin] Penicillins Allergy Itching Verified 07/29/21 07:25 povidone-iodine Allergy Rash Verified 07/29/21 07:24 [From Betadine] soap [From Betadine] Allergy Rash Verified 07/29/21 07:24 Surgical History Hx of cholecystectomy Hx of tonsillectomy Social History Smoking Status: Current every day smoker tobacco type: cigarettes substance use type: does not use ROS ROS ED Constitutional Constitutional ED: Denies chills or fever(s) Eyes Eyes: Denies blurry vision or change in vision ENT ENT ED: Denies rhinorrhea or sore throat Cardiovascular Cardiovascular: Denies chest pain or palpitations Respiratory/Chest Respiratory/Chest: Denies cough or dyspnea Gastrointestinal Gastrointestinal: Denies abdominal pain, diarrhea, nausea or vomiting Genitourinary Genitourinary ED: Denies dysuria Musculoskeletal Musculoskeletal: Reports other Details: Left hand pain Integumentary Denies Abrasions or rash Neurologic Neurologic: Denies headache(s) or weakness EXAM Physical Exam Const Vital Signs: 07/29/21 07:21 07/29/21 07:26 Temperature 97.5 F L Temperature Source Oral Pulse Rate 103 H Respiratory Rate 24 H Respiratory Effort Normal Non-Labored Respiratory Depth Normal Respiratory Pattern Normal Blood Pressure 143/115 H Blood Pressure Mean 124 Pulse Ox 98 Oxygen Delivery Method Room Air Room Air Positive well nourished General Appearance ED: NAD HEENT normocephalic and atraumatic Resp normal respiratory effort and clear to auscultation bilaterally Cardio regular rate and regular rhythm Extremity Extremity Narrative: Tenderness to palpation of the left third and fourth digits at the PIP. The distal phalanges are dorso medially angulated in appearance. Left hand has good cap refill. Neurovascular intact. Neuro oriented x3 and CN's II-XII intact bilaterally Sensorium / Orientation: alert Skin Rashes: no rashes Trauma: abrasion MDM MDM MDM Narrative Medical decision making narrative: Patient presenting with deformities of the left third and fourth digits. Patient was given oxycodone for pain. I obtain imaging of the left hand and does show the third and fourth digits have dorsal ulnar angulation at the PIPs on my interpretation. Patient's hand was cleaned and prepped. Lidocaine without epinephrine was used to perform digital nerve block on the third and fourth digits with 2.5 cc in each finger. Patient tolerated this well. Dislocations were individually reduced. Follow-up x-ray left hand on my interpretation shows reduction of the previous dislocations bilaterally. There appears to be no fracture pattern. Patient's third fourth fingers were splinted in extension. Patient is given work sections due to the pain/injury. Patient is given Ultram for pain because he states this is something he can tolerate well. Patient will follow up with in the [facility]. Impression: 1. Third and fourth left hand finger dislocations. Discharge Plan Triage Chief Complaint: Fall ED Provider: Donald Bright Dx/Rx/DC Orders Instructions: ED Finger Dislocation Prescriptions: New tramadol [Ultram] 50 mg tablet 50 mg PO Q8H PRN (Reason: pain) 3 Days Qty: 12 RF: 0 No Action meloxicam 7.5 mg Tablet 7.5 mg PO BID RF: 0 Primary Care Provider: Tony Holguin Referrals: Tony Holguin MD [Primary Care Provider] - [facility] [[facility]] - As soon as possible Disposition Disposition: Home, Self Care
--- NOTE | 2021-07-29 07:36 | ED.RN ---
pt employer called er to make sure he receives [facility] paperwork and is drug tested
[2021-07-29] MEDS: oxyCODONE 5 MG Tablet PO (07:39)
[2021-07-29] MEDS: Lidocaine 1% /Epi 1:100 (20ml) 20 ML Vial INFILT (08:00)
--- NOTE | 2021-07-29 08:00 | RAD_ITS ---
STUDY: X-RAY - LEFT HAND REASON FOR EXAM: Male, 46 years old. Post reduction TECHNIQUE: 4 view(s) of the hand. COMPARISON: Comparison is made with prior examination done earlier today. FINDINGS: Normal radiocarpal articulation. Normal distal radioulnar joint. Normal visualized carpal bones. Normal carpal articulations Normal carpometacarpal articulation of the thumb. Normal second through fifth carpometacarpal joints. Normal metacarpi. Normal metacarpophalangeal joint of the thumb. Normal interphalangeal joint of the thumb. Normal proximal and distal phalanges of the thumb. Normal metacarpophalangeal joints of the second through fifth fingers. Normal proximal and distal interphalangeal joints of the second through fifth fingers. Normal phalanges of the second through fifth fingers. The soft tissue structures are unremarkable. RAD/Hand Min 3 Views IMPRESSION: Satisfactory reduction of the proximal interphalangeal joints of the third and fourth digits. Electronically Signed: Louie De La Cruz MD at 8:17 EST , Service support ,
[2021-07-29 08:53] VITALS: BP 145/82; PULSE 80; RESP 16; O2SAT 97
== END 2021-07-29 08:54 | disposition home or self-care (01) ==
PROVIDERS: Emergency Provider Student in an Organized Health Care Education/Training Program; PCP Family Medicine
DX: S63.283A Dislocation of proximal interphalangeal joint of left middle finger, initial encounter (principal); S63.285A Dislocation of proximal interphalangeal joint of left ring finger, initial encounter; W00.0XXA Fall on same level due to ice and snow, initial encounter; Y93.01 Activity, walking, marching and hiking; Y92.9 Unspecified place or not applicable; Y99.0 Civilian activity done for income or pay; F17.210 Nicotine dependence, cigarettes, uncomplicated
CPT/HCPCS: 26770 ×2; 73130; 99283

== ENCOUNTER 2021-09-22 02:01 | Inpatient (IN) | payer MEDICAID, SELFPAY ==
[2021-09-22] VITALS (15 sets, daily range): BP systolic 117–148; BP diastolic 72–104; PULSE 85–112; RESP 16–22; TEMP 36.2–37.3; O2SAT 92–99; BMI 28.3; BMI 27.6; BMI 27.4
--- NOTE | 2021-09-22 02:14 | RAD_ITS ---
EXAM: XR Left Hip With Pelvis When Performed, 2 or 3 Views CLINICAL INDICATION: 46 years old, Male; trauma TECHNIQUE: Two or three views of the left hip with pelvis when performed. This report was created using [employer] report REMOTV technology. COMPARISON: None. FINDINGS: Bones/joints: Displaced left femoral neck fracture. No destructive or sclerotic lesions. Note that overlapping bowel shadows may however obscure fine detail. Sacroiliac joint is unremarkable. No widening of the pubic symphysis. The articular structures are unremarkable. Soft tissues: Unremarkable. No soft tissue swelling or gas. RAD/HIP, UNI W/ Pelvis 2-3 Views IMPRESSION: Displaced left femoral neck fracture. Electronically Signed: Pepe Brooke MD at 2:50 EST ,
--- NOTE | 2021-09-22 02:14 | RAD_ITS ---
EXAM: XR Left Knee, 3 Views CLINICAL INDICATION: 46 years old, Male; trauma TECHNIQUE: Three views of the left knee. This report was created using [employer] report generation technology. COMPARISON: None. FINDINGS: Bones/joints: Unremarkable. No acute fracture. No subluxation. Normal alignment. Preservation of the joint space. No sclerotic or destructive changes observed. Soft tissues: Unremarkable. No soft tissue swelling or gas. No radiopaque foreign body. RAD/Knee 3 Views IMPRESSION: Negative left knee x-rays. Electronically Signed: Pepe Brooke MD at 2:50 EST ,
--- NOTE | 2021-09-22 02:14 | EX.ED.GENINJ ---
HPI History of Present Illness Chief Complaint: Fall Informant: patient Narrative Narrative: Patient was walking his dog outside. He was walking on what he thought was snow. The dog started to move away and pulled on him. Patient actually was standing on ice. He slipped and landed directly on his left hip. He states he did hit his left elbow but it really does not hurt and does not hurt to move. He had some dislocations of his left fingers recently but those are doing okay. He does have an abrasion across the dorsum of his left ring finger. He never hit his head. He is not on anticoagulation. He complains of pain in the left hip buttock and left knee area. He was not able to bear weight. Motion makes it worse and rest makes it better. PFSH PFS Medical History Patient denies medical problems Renal calculi Home Medications NK 09/22/21 [History Last Taken Unknown] Allergy/AdvReac Type Severity Reaction Status Date / Time acetaminophen [From Vicodin] Allergy Rash Verified 09/22/21 02:05 amoxicillin [Amoxicillin] Allergy Rash Verified 09/22/21 02:05 hydrocodone bitartrate Allergy Rash Verified 09/22/21 02:05 [From Vicodin] Penicillins Allergy Itching Verified 09/22/21 02:05 povidone-iodine Allergy Rash Verified 09/22/21 02:05 [From Betadine] soap [From Betadine] Allergy Rash Verified 09/22/21 02:05 Surgical History Hx of cholecystectomy Hx of tonsillectomy Social History Smoking Status: Current every day smoker tobacco type: cigarettes substance use type: does not use ROS ROS ED Constitutional Constitutional ED: Denies fever(s) or subjective Eyes Eyes: Denies blurry vision or change in vision ENT ENT ED: Denies ear pain Cardiovascular Cardiovascular: Denies chest pain Respiratory/Chest Respiratory/Chest: Denies cough or dyspnea Gastrointestinal Gastrointestinal: Denies abdominal pain, nausea or vomiting Genitourinary Genitourinary ED: Denies hematuria Musculoskeletal Musculoskeletal: Reports other Details: See history of present illness ; Denies back pain or neck pain Integumentary Reports Abrasions and other Details: Abrasion to dorsum of left finger/hand area Neurologic Neurologic: Denies headache(s), paresthesias or weakness Endocrine Endocrinology: Denies polydipsia or polyuria Hematologic/Lymphatic Hematologic/Lymphatic: Denies easy bleeding or easy bruising Allergic/Immunologic Allergic/Immunologic ED: Denies urticaria EXAM Physical Exam Const Vital Signs: 09/22/21 02:02 Temperature 97.1 F L Temperature Source Temporal Pulse Rate 112 H Respiratory Rate 16 Blood Pressure 139/104 H Blood Pressure Mean 115 Pulse Ox 99 Oxygen Delivery Method Room Air Positive well nourished and well developed General Appearance ED: well developed and NAD HEENT atraumatic; Negative for trauma Eyes PERRL Chest Wall inspection of chest normal Resp normal respiratory effort and clear to auscultation bilaterally Auscultation: Negative for rales, rhonchi or wheezes Cardio regular rhythm Rate: regular rate GI normal to inspection, nondistended, normoactive bowel sounds and non-tender Palpation: soft Back/Spine normal to inspection Back/Spine Narrative: Patient does have some soreness in the left buttock but no tenderness in the lumbar spine. No pain with compression of the pelvis laterally. Extremity Extremity Narrative: Patient has a slight abrasion to the dorsum of the left ring finger. No deformities are noted there. No pain with motion or palpation of the left elbow or left upper extremity. He has some tenderness over the greater trochanter on the left and a little bit on the lateral aspect of the left knee. There is no shortening or rotation. I did not put the extremity through range of motion initially pending x-rays. Distal pulses are intact and sensation is intact to. Neuro oriented x3 Sensorium / Orientation: alert Psych mental status grossly normal Skin Skin Narrative: Abrasion as above. MDM MDM MDM Narrative Medical decision making narrative: I looked at patient's films. They have also now been read by radiology. He does have an impacted mildly angulated left femoral neck fracture. Knee chest x-ray showed no acute process. I have ordered blood work at this time. CBC so far is normal. Blood work from a little over a year ago showed no marked abnormalities. I did discuss the case with orthopedics, Dr. Stroud. I am also calling hospitalist. Both CBC and electrolytes show no marked abnormalities. Lab Data Attestation: I reviewed the patient's lab results. Labs: Laboratory Results - last 24 hr 09/22/21 09/22/21 02:49 02:49 WBC 10.4 RBC 5.05 Hgb 15.8 Hct 45.8 MCV 90.7 MCH 31.3 MCHC 34.5 RDW Std Deviation 42.5 RDW Coeff of Mireya 13.1 Plt Count 233 MPV 10.7 Immature Gran % (Auto) 0.700 Neut % (Auto) 70.6 H Lymph % (Auto) 19.7 Overton % (Auto) 7.6 Eos % (Auto) 0.9 Baso % (Auto) 0.5 Absolute Neuts (auto) 7.4 Absolute Lymphs (auto) 2.05 Nucleated RBC % 0 Sodium 140 Potassium 3.9 Chloride 110 H Carbon Dioxide 26.0 Anion Gap 4 L BUN 12 Creatinine 1.13 Estim Creat Clear Calc 91.33 Est GFR (MDRD) Af Amer 89 Est GFR (MDRD) Non-Af 74 BUN/Creatinine Ratio 10.6 Glucose 96 Calcium 8.2 L Radiography Diagnostic Testing: Clinical Impression(s) from Imaging Studies Hip/Pelvis X-Ray 09/22/21 02:14 IMPRESSION: Displaced left femoral neck fracture. Electronically Signed: Pepe Brooke MD at 2:50 EST , Knee X-Ray 09/22/21 02:14 IMPRESSION: Negative left knee x-rays. Electronically Signed: Pepe Brooke MD at 2:50 EST , Chest X-Ray 09/22/21 02:38 IMPRESSION: No radiographic evidence of acute cardiopulmonary disease. Electronically Signed: Pepe Brooke MD at 2:50 EST , EKG Initial EKG: Comments: EKG done as part of medical work-up read by me shows normal sinus rhythm with a rate of 93. No ectopy. No acute ST elevation or depression. IA interval, QRS duration and QTc normal. Discharge Plan Dx/Rx/DC Orders Clinical Impression: Fracture of femoral neck, left, Fall due to ice or snow, Contusion of left knee Disposition Disposition: Acute Care Hospital [facility]
[2021-09-22] MEDS: traMADol 50 MG Tablet PO (02:36)
--- NOTE | 2021-09-22 02:38 | EKG12_ITS ---
Test Reason : ABD PAIN Blood Pressure : / mmHG Vent. Rate : 093 BPM Atrial Rate : 093 BPM P-R Int : 172 ms QRS Dur : 072 ms QT Int : 334 ms P-R-T Axes : 068 060 046 degrees QTc Int : 415 ms Normal sinus rhythm Low voltage QRS Confirmed by KRUNAL JASON, TARA ([id number]), assignment editor DORIS MONDRAGON ([id number]) on 09/24/2021 11:38:33 AM Referred By: RENUKA Confirmed By:TARA HECTOR MD
--- NOTE | 2021-09-22 02:38 | RAD_ITS ---
EXAM: XR Chest, 1 View CLINICAL INDICATION: 46 years old, Male; pre-op TECHNIQUE: Frontal view of the chest. This report was created using [employer] report generation technology. COMPARISON: None. FINDINGS: Lungs and pleural spaces: Unremarkable. No consolidation or edema. No pneumothorax. No effusion. Heart: Unremarkable. Cardiac silhouette not enlarged. Mediastinum: Central airways and mediastinal contour are unremarkable. Bones/joints: Unremarkable. Soft tissues: Unremarkable. RAD/Chest 1 View (Portable) IMPRESSION: No radiographic evidence of acute cardiopulmonary disease. Electronically Signed: Pepe Brooke MD at 2:50 EST ,
[2021-09-22 02:57] LABS: Absolute Lymphocyte Count 2.05 X10^3/uL (0.83-4.51); Absolute Neutrophil Count 7.4 X10^3/uL (2.0-7.7); Basophil# 0.05 X10^3/uL; Basophil% 0.5 % (0-1); Eosinophil# 0.09 X10^3/uL; Eosinophils% 0.9 % (0-5); Hematocrit 45.8 % (40-54); Hemoglobin 15.8 g/dL (13.0-16.5); Lymphocyte # 2.05 X10^3/ul (0.83-4.51); Lymphocyte % 19.7 % (19-41); Mean Corp Hgb Conc 34.5 g/dL (32-36); Mean Corpuscular Hgb 31.3 pg (27.0-32.0); Mean Corpuscular Volume 90.7 fL (80-94); Mean Platelet Vol. 10.7 fl (6.2-12.0); Monocyte# 0.79 X10^3/uL; Monocyte% 7.6 % (0-10); NRBC Flagged by Analyzer 0 % (0-5); Neutrophil # 7.36 X10^3/uL (2.7-7.7); Neutrophil % 70.6 % (47-70); Platelet Count 233 K/mm3 (150-450); RBC Distribution Width CV 13.1 % (11.6-14.6); RBC Distribution Width SD 42.5 fl (35.1-43.9); Red Blood Count 5.05 M/mm3 (4.6-6.2); White Blood Count 10.4 K/mm3 (4.4-11.0)
[2021-09-22 03:10] LABS: Anion Gap 4 (5-15); BUN 12 mg/dL (7-18); BUN/Creat Ratio 10.6 RATIO (10-20); Calcium,Total 8.2 mg/dL (8.5-10.1); Chloride 110 mmol/L (98-107); Creatinine, Serum 1.13 mg/dL (0.70-1.30); EST Glomerular Filtration Rate 74 mL/min (>60); Est Glom Filt Rate - Afr Amer 89 mL/min (>60); Estimated Creatinine Clearance 91.33 ml/min; Glucose 96 mg/dL (74-106); Potassium 3.9 mmol/L (3.5-5.1); Sodium Level 140 mmol/L (136-145)
--- NOTE | 2021-09-22 03:14 | CON.PCM.HO_ITS ---
Assessment & Plan Assessment/Plan (1) Fracture of femoral neck, left: QUALIFIERS: Encounter type: initial encounter Fracture type: closed Qualified Code(s): S72.002A - Fracture of unspecified part of neck of left femur, initial encounter for closed fracture PLAN: The patient is a 46 y/o M w/ PMHx: Tobacco use who presents to the [facility] ED on 09/22/21 with history of walking his dog outside and unfortunately slipping hard on ice landing on his left hip with mild left elbow discomfort and some dislocations of his left hand digits with no head trauma or loss of consciousness but ongoing left lower extremity severe pain with inability to bear weight prompting ED evaluation. #1. General debility, mechanical fall with slip on the ice with contusions, abrasions, L hip pain s/p mechanical fall w/ displaced left femoral neck fracture: Patient admitted to NH per Orthopedic surgery given young and no ma rked medical history, maintain NPO, continue gentle IVFs, santos placement, monitor I/Os, frequent positioning, fall precautions, pain, anti-emetic regimen. PT/OT following operative intervention. CM consulted for discharge planning. NSQIP given age and no marked medical history low risk, labs appropriate, EKG without acute findings, agree with progression to operative intervention. #2. Elevated BP without hypertensive diagnosis: BP elevated upon ED presentation, potentially secondary to pain, will continue to monitor and add regimen if it is appropriate. #3. Tobacco Abuse: Encouraged cessation, inpatient consultation per RT, NR if desired. #4. DVT prophylaxis: SCDs, defer chemoprophylaxis given planned OR. HPI Consult Data Date of Consult: 09/22/21 HPI Narrative HPI Narrative: The patient is a 46 y/o M w/ PMHx: Tobacco use who presents to the [facility] ED on 09/22/21 with history of walking his dog outside and unfortunately slipping hard on ice landing on his left hip with mild left elbow discomfort and some dislocations of his left hand digits with no head trauma or loss of consciousness but ongoing left lower extremity severe pain with inability to bear weight prompting ED evaluation. He notes his pain is worse with any movement of his LLE or weight upon it. He rates his pain initially 10/10, currently down to 5/10 following medications. He notes he is having difficulty getting comfortable. Work-up in the ED included T 97.1, heart rate 112, BP 139/104, respiratory rate 99, CBC with WC 10.4, hemoglobin 15.8, platelet 233 without marked shift, pending BMP upon requested evaluation of patient, chest x- ray with no acute cardiopulmonary findings, left knee plain film with no acute findings, plain film of the left hip with a displaced left femoral neck fracture, EKG with sinus rhythm with no acute evidence of ischemia. [facility] Medical History Patient denies medical problems Renal calculi Home Medications NK 09/22/21 [History Last Taken Unknown] Allergy/AdvReac Type Severity Reaction Status Date / Time acetaminophen [From Vicodin] Allergy Rash Verified 09/22/21 02:05 amoxicillin [Amoxicillin] Allergy Rash Verified 09/22/21 02:05 hydrocodone bitartrate Allergy Rash Verified 09/22/21 02:05 [From Vicodin] Penicillins Allergy Itching Verified 09/22/21 02:05 povidone-iodine Allergy Rash Verified 09/22/21 02:05 [From Betadine] soap [From Betadine] Allergy Rash Verified 09/22/21 02:05 Family History (Updated 09/22/21 @ 03:[address] Rosa Maria Jurado MD) Mother Diabetes other (Patient notes father never goes to the physician, no Hx CAD, HD, DM, CA.) Surgical History Hx of cholecystectomy Hx of tonsillectomy Social History (Updated 09/22/21 @ 03:[address] Rosa Maria Jurado MD) household members: spouse Smoking Status: Current every day smoker tobacco type: cigarettes Smoking packs per day: 0.5 Smoking cigarettes per day: 10.0 Smokeless tobacco user: other alcohol intake: never substance use type: does not use ROS ROS Narrative Admission Review of Systems: CONSTITUTIONAL: No weight loss, fever, chills, + weakness or fatigue. HEENT: Eyes: No visual loss, blurred vision, double vision or yellow sclerae. Ears, Nose, Throat: No hearing loss, sneezing, congestion, runny nose or sore throat. SKIN: No rash or itching, lesions, wounds. CARDIOVASCULAR: No chest pain, chest pressure or chest discomfort, palpitations, edema, orthopnea, syncopal events. RESPIRATORY: No shortness of breath, cough or sputum, wheezing, hemoptysis. GASTROINTESTINAL: No anorexia, nausea, vomiting or diarrhea, abdominal pain, melena, BRBPR. GENITOURINARY: No dysuria, frequency, urgency or retention. NEUROLOGICAL: No headache, dizziness, syncope, paralysis, ataxia, numbness or tingling in the extremities, focal weakness, change in bowel or bladder control, seizure. MUSCULOSKELETAL: + muscle, back pain, joint pain or stiffness. HEMATOLOGIC: No anemia, bleeding or bruising. LYMPHATICS: No enlarged nodes. No history of splenectomy. PSYCHIATRIC: No history of depression or anxiety. ENDOCRINOLOGIC: No reports of sweating, cold or heat intolerance. No polyuria or polydipsia. ALLERGIES: No history of asthma, hives, eczema or rhinitis. Physical Exam Narrative Physical Examination: General: Awake, alert, oriented x 3 and cooperative, laying in the ED bed, pain improved since recent ED medications, notes still uncomfortable. Skin: Normal color, normal turgor, no icterus, no cyanosis. HEENT: AT/NC, EOMI, PERRLA, MMM, no carotid bruits or JVD noted. Lungs: Diminished, greater bases, appropriate effort, no rales, ronchi or wheezing. Heart: Regular rate and rhythm; no gallop, rub audible. Abdomen: Soft, overweight, NTTP, ND, distant mildly hyperactive BS, no HSM. Extremities: No cyanosis, clubbing, or edema. Peripheral pulses intact bilaterally. Evidence of extremity abrasions, evidence of prior left hand knuckle damage. Neurological: Patient awake, alert, oriented as noted, cognitive function intact; pupils equally reactive to light and accommodation, cranial nerves II- XII grossly normal, moving all 4 extremities however limited given fall with left hip fracture, strength accordingly severely global decreased, sensation intact. Psychiatric: Affect appears fatigued, mildly uncomfortable otherwise normal, no acute evidence of depressive or anxiety feelings. Lab / Micro Data Result Diagrams: 09/22/21 02:49 09/22/21 02:49 Labs: Laboratory Results - last 24 hr 09/22/21 02:49: WBC 10.4, RBC 5.05, Hgb 15.8, Hct 45.8, MCV 90.7, MCH 31.3, MCHC 34.5, RDW Std Deviation 42.5, RDW Coeff of Mireya 13.1, Plt Count 233, MPV 10.7, Immature Gran % (Auto) 0.700, Neut % (Auto) 70.6 H, Lymph % (Auto) 19.7, [place] % (Auto) 7.6, Eos % (Auto) 0.9, Baso % (Auto) 0.5, Absolute Neuts (auto) 7.4, Abs olute Lymphs (auto) 2.05, Nucleated RBC % 0 09/22/21 02:49: Sodium 140, Potassium 3.9, Chloride 110 H, Carbon Dioxide 26.0, Anion Gap 4 L, BUN 12, Creatinine 1.13, Estim Creat Clear Calc 91.33, Est GFR (MDRD) Af Amer 89, Est GFR (MDRD) Non-Af 74, BUN/Creatinine Ratio 10.6, Glucose 96, Calcium 8.2 L Radiology Impression Hip/Pelvis X-Ray 09/22/21 02:14 IMPRESSION: Displaced left femoral neck fracture. Electronically Signed: Pepe Brooke MD at 2:50 EST , Knee X-Ray 09/22/21 02:14 IMPRESSION: Negative left knee x-rays. Electronically Signed: Pepe Brooke MD at 2:50 EST , Chest X-Ray 09/22/21 02:38 IMPRESSION: No radiographic evidence of acute cardiopulmonary disease. Electronically Signed: Pepe Brooke MD at 2:50 EST , Charges/Coding Visit Charges Office Visits / Consults: [id number] IP Consult L3
[2021-09-22] MEDS: Morphine 4 MG/ML Syringe IV (03:21)
[2021-09-22] MEDS: Ondansetron 4 MG/2 ML Vial IV (03:22)
[2021-09-22] MEDS: 0.9% Saline Lock 10 ML Syringe IV (05:18)
[2021-09-22] MEDS: HYDROmorphone 0.5 MG/0.5 ML SYRINGE IV ×3 (05:19→12:37)
[2021-09-22] MEDS: 0.9% Normal Saline 1,000 ML 100 ML IV ×2 (05:19→13:36)
[2021-09-22 06:16] LABS: Absolute Lymphocyte Count 2.45 X10^3/uL (0.83-4.51); Absolute Neutrophil Count 11.9 X10^3/uL (2.0-7.7); Basophil# 0.06 X10^3/uL; Basophil% 0.4 % (0-1); Eosinophil# 0.07 X10^3/uL; Eosinophils% 0.4 % (0-5); Hematocrit 42.1 % (40-54); Hemoglobin 14.5 g/dL (13.0-16.5); Lymphocyte # 2.45 X10^3/ul (0.83-4.51); Lymphocyte % 15.7 % (19-41); Mean Corp Hgb Conc 34.4 g/dL (32-36); Mean Corpuscular Hgb 30.8 pg (27.0-32.0); Mean Corpuscular Volume 89.4 fL (80-94); Mean Platelet Vol. 11.3 fl (6.2-12.0); Monocyte# 0.99 X10^3/uL; Monocyte% 6.4 % (0-10); NRBC Flagged by Analyzer 0 % (0-5); Neutrophil # 11.92 X10^3/uL (2.7-7.7); Neutrophil % 76.7 % (47-70); Platelet Count 226 K/mm3 (150-450); RBC Distribution Width SD 42.8 fl (35.1-43.9); Red Blood Count 4.71 M/mm3 (4.6-6.2); White Blood Count 15.6 K/mm3 (4.4-11.0)
[2021-09-22 06:55] LABS: AST(SGOT) 14 U/L (15-37); Alanine Aminotransfer ALT/SGPT 22 U/L (16-61); Albumin, Serum 3.2 g/dL (3.2-5.0); Alkaline Phosphatase 80 U/L (45-117); Anion Gap 4 (5-15); BUN 13 mg/dL (7-18); BUN/Creat Ratio 12.9 RATIO (10-20); Calcium,Total 7.9 mg/dL (8.5-10.1); Chloride 110 mmol/L (98-107); Creatinine, Serum 1.01 mg/dL (0.70-1.30); EST Glomerular Filtration Rate 84 mL/min (>60); Est Glom Filt Rate - Afr Amer 102 mL/min (>60); Estimated Creatinine Clearance 102.18 ml/min; Globulin 3.3 g/dL (2.2-4.2); Glucose 105 mg/dL (74-106); Potassium 3.9 mmol/L (3.5-5.1); Protein, Total 6.5 g/dL (6.4-8.2); Sodium Level 138 mmol/L (136-145)
--- NOTE | 2021-09-22 07:44 | PCM.HOSP.N ---
Hospitalist Note Patient is a 46-year-old gentleman in relatively good health admitted following a fall. He did slip on ice. Imaging studies obtained in the ED demonstrated displaced left femoral neck fracture. Patient has been admitted to the Ortho service with consultation placed to medicine. Patient has been seen and examined, his initial assessment including history and physical diagnostic data and management orders reviewed will follow.
--- NOTE | 2021-09-22 14:12 | HP.PCM_ITS ---
HPI - General General Date of Admission: 09/22/21 HPI Narrative JENNA ZARATE, is a 46 M who presents after a ground level fall onto the left hip he thought he was stepping into the grass slipped on ice with direct impact to the side of his hip. He denies any other complaints denies any history of back or lower extremity problems. [facility] Medical History Patient denies medical problems Renal calculi Home Medications NK 09/22/21 [History Last Taken Unknown] Allergy/AdvReac Type Severity Reaction Status Date / Time acetaminophen [From Vicodin] Allergy Rash Verified 09/22/21 02:05 amoxicillin [Amoxicillin] Allergy Rash Verified 09/22/21 02:05 hydrocodone bitartrate Allergy Rash Verified 09/22/21 02:05 [From Vicodin] Penicillins Allergy Itching Verified 09/22/21 02:05 povidone-iodine Allergy Rash Verified 09/22/21 02:05 [From Betadine] soap [From Betadine] Allergy Rash Verified 09/22/21 02:05 Family History (Updated 09/22/21 @ 03:[address] Rosa Maria Jurado MD) Mother Diabetes Family History other Surgical History Hx of cholecystectomy Hx of tonsillectomy Social History (Updated 09/22/21 @ 03:[address] Rosa Maria Jurado MD) household members: spouse Smoking Status: Current every day smoker tobacco type: cigarettes Smokeless tobacco user: other alcohol intake: never substance use type: does not use Vital Signs Vital Signs Vital Signs: 09/22/21 02:02 09/22/21 04:26 09/22/21 04:30 Temperature 97.1 F L 97.5 F L 98.4 F Temperature Source Temporal Temporal Oral Pulse Rate 112 H 86 89 Pulse Strength Respiratory Rate 16 16 18 Respiratory Effort Blood Pressure 139/104 H 125/84 H 134/96 H Blood Pressure Mean 115 97 108 Blood Pressure Source Monitor Blood Pressure Position Semi-Fowlers Blood Pressure Location Right Arm Pulse Ox 99 98 95 Oxygen Delivery Method Room Air Room Air Room Air 09/22/21 05:15 09/22/21 07:40 09/22/21 08:38 Temperature 98.4 F Temperature Source Oral Pulse Rate 90 Pulse Strength Respiratory Rate 16 Respiratory Effort Normal Non-Labored Blood Pressure 118/72 Blood Pressure Mean 87 Blood Pressure Source Monitor Blood Pressure Position Semi-Fowlers Blood Pressure Location Right Arm Pulse Ox 96 92 Oxygen Delivery Method Room Air Room Air Room Air 09/22/21 10:00 09/22/21 12:33 Temperature 98.8 F Temperature Source Oral Pulse Rate 92 Pulse Strength Normal (2+) Respiratory Rate 18 Respiratory Effort Blood Pressure 131/79 H Blood Pressure Mean 96 Blood Pressure Source Monitor Blood Pressure Position Semi-Fowlers Blood Pressure Location Right Arm Pulse Ox 93 Oxygen Delivery Method Room Air Weight Weight: 207 lb 14.334 oz Body Mass Index (BMI) 27.4 Physical Exam Const alert, oriented x3 and no apparent distress Extremity Extremity Narrative: Left lower extremity without significant ecchymosis there is positive log roll he has palpable pedal pulses which appear regular intact sensation light touch throughout the lower extremity Results Lab / Micro Data Result Diagrams: 09/22/21 05:40 09/22/21 05:40 Labs: Laboratory Results - last 24 hr 09/22/21 02:49: WBC 10.4, RBC 5.05, Hgb 15.8, Hct 45.8, MCV 90.7, MCH 31.3, MCHC 34.5, RDW Std Deviation 42.5, RDW Coeff of Mireya 13.1, Plt Count 233, MPV 10.7, Immature Gran % (Auto) 0.700, Neut % (Auto) 70.6 H, Lymph % (Auto) 19.7, [place] % (Auto) 7.6, Eos % (Auto) 0.9, Baso % (Auto) 0.5, Absolute Neuts (auto) 7.4, Absolute Lymphs (auto) 2.05, Nucleated RBC % 0 09/22/21 02:49: Sodium 140, Potassium 3.9, Chloride 110 H, Carbon Dioxide 26.0, Anion Gap 4 L, BUN 12, Creatinine 1.13, Estim Creat Clear Calc 91.33, Est GFR (MDRD) Af Amer 89, Est GFR (MDRD) Non-Af 74, BUN/Creatinine Ratio 10.6, Glucose 96, Calcium 8.2 L 09/22/21 05:40: WBC 15.6 H, RBC 4.71, Hgb 14.5, Hct 42.1, MCV 89.4, MCH 30.8, MCHC 34.4, RDW Std Deviation 42.8, RDW Coeff of Mireya 13.0, Plt Count 226, MPV 11.3, Immature Gran % (Auto) 0.400, Neut % (Auto) 76.7 H, Lymph % (Auto) 15.7 L, [place] % (Auto) 6.4, Eos % (Auto) 0.4, Baso % (Auto) 0.4, Absolute Neuts (auto) 11.9 H, Absolute Lymphs (auto) 2.45, Nucleated RBC % 0 09/22/21 05:40: Sodium 138, Potassium 3.9, Chloride 110 H, Carbon Dioxide 24.0, Anion Gap 4 L, BUN 13, Creatinine 1.01, Estim Creat Clear Calc 102.18, Est GFR (MDRD) Af Amer 102, Est GFR (MDRD) Non-Af 84, BUN/Creatinine Ratio 12.9, Glucose 105, Calcium 7.9 L, Total Bilirubin 0.40, AST 14 L, ALT 22, Alkaline Phosphatase 80, Total Protein 6.5, Albumin 3.2, Globulin 3.3, Albumin/Globulin Ratio 1.0 09/22/21 07:20: Blood Type O NEGATIVE, Antibody Screen NEGATIVE Micro: Microbiology 09/22/21 03:09 Nasal Secretion SARS-CoV-2 Antigen (Rapid) - Final Radiology Impression Hip/Pelvis X-Ray 09/22/21 02:14 IMPRESSION: Displaced left femoral neck fracture. Electronically Signed: Pepe Brooke MD at 2:50 EST , Knee X-Ray 09/22/21 02:14 IMPRESSION: Negative left knee x-rays. Electronically Signed: Pepe Brooke MD at 2:50 EST , Chest X-Ray 09/22/21 02:38 IMPRESSION: No radiographic evidence of acute cardiopulmonary disease. Electronically Signed: Pepe Brooke MD at 2:50 EST , Assessment & Plan Assessment/Plan (1) Fracture of femoral neck, left: QUALIFIERS: Encounter type: initial encounter Fracture type: closed Qualified Code(s): S72.002A - Fracture of unspecified part of neck of left femur, initial encounter for closed fracture PLAN: Plan for left hip percutaneous screw fixation he has no medical issues he does not take any home medications. Informed consent obtained from patient.
--- NOTE | 2021-09-22 15:05 | RAD_ITS ---
STUDY: X-RAY - PELVIS AND LEFT HIP REASON FOR EXAM: Male, 46 years old. FX TECHNIQUE: 3 views of the pelvis and hip. COMPARISON: None. FINDINGS: 2 images obtained intraoperatively demonstrating screw placement. RAD/Hip Min 2 Views (Portable) IMPRESSION: Images obtained for hardware localization. Electronically Signed: Linda Rowe MD at 23:58 EST Reading Location ID and State: [id number] / Tel , Service support ,
[2021-09-22] MEDS: Cefazolin 2 GM in 0.9% Normal Saline 100 ML IV (15:13)
--- NOTE | 2021-09-22 16:02 | OP.PCM_ITS ---
Report of Operation Date of Procedure: 09/22/21 Description of Surgical Findings:: Preoperative diagnosis: Left hip femoral neck fracture valgus impacted nondisplaced Postoperative diagnosis: Same Procedure: Percutaneous screw fixation of left hip Anesthesia: General EBL: 10 Complications: None Implant :Synthes 7.3mm cannulated hip screws x3 Condition: Stable to PACU Indication for procedure: 46-year-old male status post ground-level fall on the ice landing on the left hip sustained a minimally impacted valgus for fracture of the left femoral neck orthopedic's was consulted for fracture we did discuss cannulated screw fixation of the hip. Risk benefits and alternatives were reviewed including risk of bleeding infection nerve, artery, bone, tissue damage, blood clot need for further surgery and continued pain, AVN. Procedure: Patient was met in the preoperative holding area once again the opera tive extremity was identified by both patient and physician was marked. Patient was met by anesthesia and brought back to the operating room on a wheeled cart and transfered the operating table in supine position anesthesia was started. Patient was then positioned on fracture table all bony prominences were well- padded. Fluoroscopy unit was brought in to ensure adequate AP and lateral projections could be achieved. Patient was then prepped and draped in usual sterile fashion a timeout was called to the proper patient procedure and extremity are being contemplated. The hip was positioned in an abducted internally rotated position for the procedure fluoroscopy was once again brought in and with a metallic instrument the starting point was marked on the AP and lateral projections on the skin then made a stab incision through the skin and the pin was inserted to the appropriate starting point was advanced into the femoral head this was checked in both AP and lateral projections for position. We then used the parallel drill guide to place remainder of the screws creating an inverted triangle pattern. these were checked in both AP and lateral projections and measured self-tapping screws were then placed over the pins. Final AP and lateral projections were saved to the PACS system. Screw heads were checked to make sure there is no iliotibial band entrapment the wound was thoroughly irrigated subcutaneous tissue was closed with 0 Vicryl 2-0 Vicryl followed by alejandro in the skin standard dressing applied. We did inject 1% lidocaine with epinephrine 1 to 200,000 10 cc Patient will be toe-touch weightbearing on the operative side until further notice and x-ray follow-up .
[2021-09-22] MEDS: Lactated Ringers 1,000 ML 125 ML IV (17:36)
[2021-09-22] MEDS: Cefazolin 1 GM/50 ML BAG IV (17:37)
[2021-09-22] MEDS: oxyCODONE 5 MG Tablet PO (19:26)
[2021-09-23] MEDS: Cefazolin 1 GM/50 ML BAG IV ×2 (01:13→08:36)
[2021-09-23] MEDS: oxyCODONE 5 MG Tablet PO ×3 (01:26→14:54)
[2021-09-23 03:00] VITALS: BP 139/88; PULSE 91; RESP 16; TEMP 36.9; O2SAT 92
[2021-09-23 06:13] LABS: Hematocrit 43.1 % (40-54); Mean Corp Hgb Conc 34.8 g/dL (32-36); Mean Corpuscular Hgb 31.5 pg (27.0-32.0); Mean Corpuscular Volume 90.5 fL (80-94); Mean Platelet Vol. 11.3 fl (6.2-12.0); Platelet Count 202 K/mm3 (150-450); RBC Distribution Width CV 12.9 % (11.6-14.6); RBC Distribution Width SD 43.2 fl (35.1-43.9); Red Blood Count 4.76 M/mm3 (4.6-6.2); White Blood Count 11.7 K/mm3 (4.4-11.0)
[2021-09-23] MEDS: APIXABAN 2.5 MG TABLET PO (06:30)
[2021-09-23] MEDS: 0.9% Saline Lock 10 ML Syringe IV (06:32)
[2021-09-23 06:33] LABS: Anion Gap 5 (5-15); BUN 9 mg/dL (7-18); BUN/Creat Ratio 8.7 RATIO (10-20); Calcium,Total 8.1 mg/dL (8.5-10.1); Chloride 105 mmol/L (98-107); Creatinine, Serum 1.03 mg/dL (0.70-1.30); EST Glomerular Filtration Rate 82 mL/min (>60); Est Glom Filt Rate - Afr Amer 99 mL/min (>60); Glucose 123 mg/dL (74-106); Potassium 3.6 mmol/L (3.5-5.1); Sodium Level 134 mmol/L (136-145)
--- NOTE | 2021-09-23 07:16 | PCM.PN.ORT ---
Subjective Subjective Seen and examined. Patient resting comfortably when entering room when I awaken him he complains of lateral sided left hip pain. No other complaints no fevers chills nausea vomiting shortness of breath or chest pain. Objective Data Objective Data Vital Signs: Vital Signs Temp Pulse Resp BP Pulse Ox 98.4 F 91 16 139/88 H 92 09/23/21 03:00 09/23/21 03:00 09/23/21 03:00 09/23/21 03:00 09/23/21 03:00 Oxygen Flow Rate (L/min) 1 Oxygen Delivery Method Room Air Weight: 207 lb 14.334 oz Body Mass Index (BMI) 27.4 Intake & Output: Intake and Output for Last 24 Hours 09/21/21 09/22/21 09/23/21 23:59 23:59 23:59 Intake Total 1996.66 / 1996.66 945.83 / 945.83 Output Total 650 / 650 1050 / 1050 Balance 1347.66 / 1347.66 -104.17 / -104.17 Lab / Micro Data Result Diagrams: 09/23/21 05:22 09/23/21 05:22 Labs: Laboratory Results - last 24 hr 09/22/21 07:20: Blood Type O NEGATIVE, Antibody Screen NEGATIVE 09/23/21 05:22: WBC 11.7 H, RBC 4.76, Hgb 15.0, Hct 43.1, MCV 90.5, MCH 31.5, MCHC 34.8, RDW Std Deviation 43.2, RDW Coeff of Mireya 12.9, Plt Count 202, MPV 11.3 09/23/21 05:22: Sodium 134 L, Potassium 3.6, Chloride 105, Carbon Dioxide 24.0, Anion Gap 5, BUN 9, Creatinine 1.03, Estim Creat Clear Calc 100.20, Est GFR (MDRD) Af Amer 99, Est GFR (MDRD) Non-Af 82, BUN/Creatinine Ratio 8.7 L, Glucose 123 H, Calcium 8.1 L Micro: Microbiology 09/22/21 03:09 Nasal Secretion SARS-CoV-2 Antigen (Rapid) - Final Radiography Diagnostic Testing: Radiology Impression Hip X-Ray 09/22/21 15:05 IMPRESSION: Images obtained for hardware localization. Electronically Signed: Linda Rowe MD at 23:58 EST Reading Location ID and State: [id number] / Tel , Service support , Physical Exam Const alert and oriented x3 General Appearance: cooperative Extremity Extremity Narrative: Left hip dressing intact small amount of drainage remains sealed. Compartment soft neurovascular intact Assessment & Plan Assessment/Plan (1) Fracture of femoral neck, left: QUALIFIERS: Encounter type: initial encounter Fracture type: closed Qualified Code(s): S72.002A - Fracture of unspecified part of neck of left femur, initial encounter for closed fracture PLAN: Postop day #1 left hip percutaneous screw fixation for femoral neck fracture PT OT toe-touch weightbearing left lower extremity Patient to work with physical therapy this morning and as long as he is deemed safe he may be discharged home Will follow up in 2 weeks dressing to be removed 72 hours postop and then begin daily showering Eliquis 2.5 mg twice daily for 30 days I will send prescription for Eliquis and oxycodone to our pharmacy
--- NOTE | 2021-09-23 07:21 | PCM.DC ---
Discharge Instructions Activity Additional Activity Instructions:: Do not shower 72hrs. Begin daily showering warm water antibacterial soap postop day #3( 72hrs Post-operatively) and then daily. Leave the dressing on for 72 hours postoperatively then may remove prior to first shower and change dressing daily after this until no drainage for 2 consecutive days then may leave open to air. Do not bear weight on left lower extremity other than toe-touch. Wear compression stockings, may remove at night. Follow prescriptions instructions do not take any other pain medication or differ dosing without consulting your physician. Do not take oral NSAIDs until blood thinner has been completed , then may begin the day after completion if needed . Call Dr. Stroud's office with any concerns. Smoking does increase risk of wound infection and slows healing. If he can stop smoking for 6 weeks postop would improve your chances of union and decrease chances of infection. Follow Up Care Please Follow Up With: Brent Stroud DO When: 2 weeks Test Results: Test results from this visit will be discussed in further detail at your follow-up appointment, if applicable. Discharge Plan Admission Admit Date/Time: 09/22/21 02:59 Attending Provider: Brent Stroud Primary Care Provider: Tony Holguin Discharge Orders/Prescriptions Prescriptions: New oxycodone 5 mg Tablet 5 - 10 mg PO Q4H PRN PRN (Reason: Pain Score 4-10) 7 Days Qty: 55 RF: 0 Eliquis 2.5 mg Tablet 2.5 mg PO BID Qty: 30 RF: 0 Referrals / Follow Up: Tony Holguin MD [Primary Care Provider] -
[2021-09-23 08:06] VITALS: O2SAT 95
[2021-09-23] MEDS: Acetaminophen 325 MG Tablet 650 MG PO ×2 (08:36→14:53)
[2021-09-23 09:30] VITALS: BP 121/81; PULSE 90; RESP 18; TEMP 36.7; O2SAT 94
--- NOTE | 2021-09-23 10:42 | CASEMGMT ---
Addendum entered by Chel Martinez 09/23/21 15:01: Received tc back from [place] at [facility], they are able to service pt on Thursday. They are aware pt will be moving to [place] but he is not aware of the address at this time. They can accept pt in [place] as well. EPHRAIM SORTO in to pt room to make aware. Also provided pt with rx for ext tub bench and crutches. Addendum entered by Chel Martinez 09/23/21 12:02: Emailed Shalonda at [facility] for FWW and faxed referral to [facility]. Addendum entered by Chel Martinez 09/23/21 11:41: EPHRAIM SORTO in to pt room, patient was provided a list of [facility] providers including quality and resource use data and consistent with the patient?s preferred geographic region, medical needs, and insurance network. The patient?s preferred provider is [facility]. Pt chooses [facility] for FWW. TC to [facility], spoke with Azam,referral faxed at this time. Awaiting acceptance. TC to 's office, spoke with Malou, faxed rx for FWW and extended tub bench for signature. Original Note: TC to [facility] Retail pharmacy to check cost of Eliquis, michelle Toney a savings card was applied and pt cost is $0.
--- NOTE | 2021-09-23 10:45 | CASEMGMT ---
EPHRAIM SORTO Face to Face with patient for initial transition planning/care coordination assessment. RN CM introduced self and role at [facility]. Patient lying in bed, alert and oriented. Patient willing to participate in assessment and is able to answer all questions appropriately. Care providers, pharmacy, and demographics verified. Patient wishes to discharge home with HHC for therapy and then transition to outpatient therapy. Patient states he has no further needs or concerns at this time. CM to follow for discharge planning needs that may arise. PCP: Ezio Specialists: [facility] Pharmacy: [facility] retail Insurance: [employer] Prescription Benefit: yes Living Will/HPOA: none LNOK: Living Arrangements: Patient lives with in an apart but will be moving to their new house Thursday which is 2 story home. Patient states he will be able to stay on main level of home. Transportation: DME/HHC: Patient states he has cane at home. Per therapy, patient will need walker, tub bench, and possible crutches as well. CM will assist in DME setup. Disposition Plan: Patient to discharge home with [facility], family support, and follow-up plans in place. Teresa SANCHEZ, RN, CM
[2021-09-23 13:24] VITALS: BP 127/85; PULSE 69; RESP 16; TEMP 36.7; O2SAT 96
--- NOTE | 2021-09-25 12:11 | CASEMGMT ---
This EPHRAIM SORTO received a call from Cheyanne at [facility]. Per Cheyanne, pt's daughter who works at [facility] is reporting pt's is having difficulty caring for pt at home and pt needing to be admitted to [facility]. Cheyanne states they have a bed available and can accept pt but need clinical information. Cheyanne denies having any contact with pt's current HH provider in coordinating this need or of agreement from the patient. This RN CM contacted N and notified them of daughter's concerns and request for placement at [facility]. N staff have pt on the schedule to be opened today. N staff to visit home, evaluated situation and pt's needs and preference of LOC with subsequent communication of Cheyanne at [facility] statement of availability. García Shrestha RN CM
== END 2021-09-23 17:30 | disposition home health service (06) | DRG 308 ==
LOC: ED 02:59 → MS3 03:40
PROVIDERS: Family Medicine; Admitting Provider Orthopaedic Surgery; Emergency Provider Emergency Medicine; PCP Family Medicine; Visit Provider Orthopaedic Surgery
PROC: 0QH734Z Insertion of Internal Fixation Device into Left Upper Femur, Percutaneous Approach (ICD-10-PCS; principal; 2021-09-22 12:30)
DX: S72.002A Fracture of unspecified part of neck of left femur, initial encounter for closed fracture (principal); F17.210 Nicotine dependence, cigarettes, uncomplicated; W00.0XXA Fall on same level due to ice and snow, initial encounter; Y93.K1 Activity, walking an animal; Y99.8 Other external cause status; R03.0 Elevated blood-pressure reading, without diagnosis of hypertension
CPT/HCPCS: 36415; 71045; 73502; 73562; 76000; 80048; 80053; 85025; 85027; 86850; 86900; 86901; 87426; 93005; 97162; 97166; 99285; 99406; C1713; J7030; J7120; A4216; J2405; J7799